=== PATIENT | male | born 1960 | race Caucasian/White ===

== ENCOUNTER → 2020-02-06 | Outpatient (CLI) | payer OTHER ==
[~2020-02-06] MED LIST: ALBU8.5H INH; AMLO10TA5 PO; BISO5TAB14 PO; CLAR10CA3 PO; ECOT81TA5 PO; INCR1INH INH; LOSA100T50 PO
== END ==
LOC: M LABSMTC 12:44
PROVIDERS: ATTEND Anesthesiology
DX: Z03.818 Encounter for observation for suspected exposure to other biological agents ruled out (principal); Z11.59 Encounter for screening for other viral diseases
CPT/HCPCS: C9803; U0003

== ENCOUNTER 2020-02-09 10:22 | Day surgery (SDC) | payer OTHER ==
[~2020-02-09] VITALS: Ht 190.5 cm; Wt 85.6 kg
[~2020-02-09 10:22] MED LIST changes: +NS 1,000 ML IV SCH
[2020-02-09] MEDS ORDERED: propofoL 200 MG/20 ML VIAL As Ordered ONE ×3 (11:07→11:37)
[2020-02-09] MEDS ORDERED: ESMOLOL INJ 100MG/10ML VIAL As Ordered ONE (11:10)
--- NOTE | 2020-02-09 11:49 | ROOR ---
Patient Name: Adrian Sanders Procedure Date: 02/09/2020 11:03 AM Date of : 1960 Age: 59 Room: [facility] Gender: Male Note Status: Finalized Procedure: Total Colonoscopy to Cecum + Cold Snare Polypectomy + Hemoclips Indications: Screening for colorectal malignant neoplasm Providers: Newton Dumont MD Referring MD: ALEXANDER REDDY MD Requesting Provider: Medicines: Monitored Anesthesia Care Complications: No immediate complications. Procedure: Pre-Anesthesia Assessment: - The heart rate, respiratory rate, oxygen saturations, blood pressure, adequacy of pulmonary ventilation, and response to care were monitored throughout the procedure. The Colonoscope was introduced through the anus and advanced to the cecum, identified by appendiceal orifice and ileocecal valve. The colonoscopy was performed without difficulty. The patient tolerated the procedure well. The quality of the bowel preparation was excellent. Findings: The perianal and digital rectal examinations were normal. Non-bleeding internal hemorrhoids were found during retroflexion. The hemorrhoids were small and Grade II (internal hemorrhoids that prolapse but reduce spontaneously). Scattered small-mouthed diverticula were found in the recto-sigmoid colon, sigmoid colon and descending colon. Five sessile polyps were found in the mid transverse colon, proximal ascending colon and cecum. The polyps were medium in size. These polyps were removed with a cold snare. Resection and retrieval were complete. To prevent bleeding after the polypectomy, five hemostatic clips were successfully placed (MR conditional). There was no bleeding at the end of the procedure. The exam was otherwise without abnormality on direct and retroflexion views. Impression: - Non-bleeding internal hemorrhoids. - Diverticulosis in the recto-sigmoid colon, in the sigmoid colon and in the descending colon. - Five medium polyps in the mid transverse colon, in the proximal ascending colon and in the cecum, removed with a cold snare. Resected and retrieved. Clips (MR conditional) were placed. - The examination was otherwise normal on direct and retroflexion views. - The exam was otherwise normal to the cecum. Recommendation: - Patient has a contact number available for emergencies. The signs and symptoms of potential delayed complications were discussed with the patient. Return to normal activities tomorrow. Written discharge instructions were provided to the patient. - High fiber diet. - Discharge patient to home. - Continue present medications. - Await pathology results. - Telephone GI clinic for pathology results in 1 week. - Repeat colonoscopy date to be determined after pending pathology results are reviewed for surveillance based on pathology results. - Return to referring physician. - The findings and recommendations were discussed with the patient's family. Newton Dumont MD Newton Dumont MD 02/09/2020 11:49:17 AM Electronically signed by Newton Dumont MD Number of Addenda: 0 Note Initiated On: 02/09/2020 11:03 AM Estimated Blood Loss: Estimated blood loss: none.
[2020-02-09 12:13] VITALS: BP 105/73
== END 2020-02-09 12:15 | disposition home or self-care (01) ==
LOC: M OPP 10:22
PROVIDERS: ATTEND Internal Medicine Gastroenterology
DX: Z12.11 Encounter for screening for malignant neoplasm of colon (principal); D12.6 Benign neoplasm of colon, unspecified; K64.1 Second degree hemorrhoids; K57.30 Diverticulosis of large intestine without perforation or abscess without bleeding; J44.9 Chronic obstructive pulmonary disease, unspecified; I10 Essential (primary) hypertension; F17.210 Nicotine dependence, cigarettes, uncomplicated; Z79.82 Long term (current) use of aspirin; Z79.899 Other long term (current) drug therapy

== ENCOUNTER → 2021-07-14 | Outpatient (CLI) | payer OTHER ==
[~2021-07-14] MED LIST changes: -AMLO10TA5 PO; +AMLO1TAB25 PO; +LOSA100T45 PO; -LOSA100T50 PO; -NS 1,000 ML IV SCH
== END ==
LOC: M PLAIMG 09:23
PROVIDERS: ATTEND Thoracic Surgery (Cardiothoracic Vascular Surgery)
DX: I71.4 Abdominal aortic aneurysm, without rupture (principal); M43.07 Spondylolysis, lumbosacral region

== ENCOUNTER → 2021-09-17 | Outpatient (CLI) | payer OTHER | LOC: M RAD 08:13 | PROVIDERS: ATTEND Physician Assistant | DX: F17.218 Nicotine dependence, cigarettes, with other nicotine-induced disorders (principal) ==